=== PATIENT | female | born 1985 | race Caucasian/White ===

== ENCOUNTER → 2016-11-01 | Outpatient (CLI) | payer OTHER ==
[~2016-11-01] MED LIST: ATEN-173 PO; DOCO1CAP6 PO; LEVO25TA5 PO; PRENTAB26 PO; SERT50TA PO; VALA500T60 PO
--- NOTE | 2016-11-01 12:25 | MAMMOGRAPHY REPORT ---
BILATERAL DIGITAL DIAGNOSTIC MAMMOGRAM TOMOSYNTHESIS WITH CAD: 11/01/2016 CLINICAL HISTORY: Baseline examination. Family history of breast cancer = grandmothers and aunts. TECHNIQUE: Bilateral breast tomosynthesis in addition to standard 2D mammography was performed. Curr ent study was also evaluated with a Computer Aided Detection (CAD) system. COMPARISON: No prior exams were available for comparison. BREAST COMPOSITION: The tissue of both breasts is almost entirely fatty. FINDINGS: No suspicious mass, architectural distortion or cluster of microcalcifications is seen. IMPRESSION: ACR BI-RADS CATEGORY 1: NEGATIVE 1. There is no mammographic evidence of malignancy in the breasts. 2. There are no definitive guidelines as to screening recommendations under the age of 40 without a first degree relative or BRCA positivity. However, with multiple relatives, both maternal and syed rnal, having had breast cancer the patient likely has increased risk. Consider utilizing a breast c ancer risk assessment model such as the Vanesa risk model or JACKOSN II for determining appropriate scree evangelist intervals from here forward. If the patient's lifetime risk of developing breast cancer is at least 20%, she may also qualify for screening breast MRI. These results and recommendations were discussed with the patient at the time of the exam. Approximately 10% of breast cancers are not detected with mammography. A negative mammographic repor t should not delay biopsy if a clinically suggestive mass is present. Aurelia Enriquez M.D. ay/:11/01/2016 11:44:07 Computational Sciences Professor: Emilee CASAREZ)([place]), [facility] letter sent: Normal 1/2 BI-RADS Code: ACR BI-RADS Category 1: Negative
== END | disposition home or self-care (01) ==
LOC: C.MAMM 09:46
PROVIDERS: ATTEND Obstetrics & Gynecology
DX: Z80.3 Family history of malignant neoplasm of breast (principal)

== ENCOUNTER → 2017-04-10 | Outpatient (CLI) | payer OTHER | END | disposition home or self-care (01) | LOC: C.LAB1850 11:50 | PROVIDERS: ATTEND Obstetrics & Gynecology | DX: E22.1 Hyperprolactinemia (principal) ==

== ENCOUNTER 2023-02-03 07:27 | Inpatient (IN) ==
[2023-02-03] MEDS ORDERED: OXYTOCIN 30 UNITS/500 ML BAG IV PRN ×3 (08:18→14:59)
[2023-02-03] MEDS ORDERED: LIDOCAINE 1% LOCAL 20 ML VIAL INFIL PRN (08:18)
[2023-02-03] MEDS: LACTATED RINGER'S 1,000 ML IV PRN ×4 (08:30→20:59)
[2023-02-03 08:44] LABS: Hemoglobin 11.4 g/dl (12.0-16.0); Mean Corpuscular Hemoglobin 30.2 pg (25.0-34.0); Mean Corpuscular Hgb Conc 33.5 g/dL (32.0-36.0); Mean Corpuscular Volume 90.2 fL (80.0-100.0); Mean Platelet Volume 11.2 fL (9.4-12.4); Platelet Count 230 K/uL (130-400); RDW Standard Deviation 45.6 fL (36.4-46.3); Red Blood Count 3.77 M/uL (4.20-5.40); White Blood Count 10.36 K/ul (4.8-10.8)
--- NOTE | 2023-02-03 08:46 | History & Physical Report ---
Date of Service February 03, 2023 Assessment & Plan (1) Obesity affecting : (2) Chronic hypertension during , antepartum: (3) with 38 completed weeks gestation: Plan Patient presents for induction for chtn, well controlled. Marie for ripening, low dose pit with this. When bulb falls out, plan arom as indicated. epidural on demand. Fetus category one. Anticipate . Admission and Anticipated Discharge Date Admission Date: February 03, 2023 History of Present Illness Chief Complaint: iol, chtn Primary Care Provider: Yves Cabrera MD Patient is a with iup at 38 0/7 weeks who presents for induction of labor for chtn. Blood pressures have been controlled throughout on atenolol. Patient feels well. notes +fm. no lof/vb. Occasional contractions and Delivery Plans CHTN On Atenolol *Baby ASA daily start 12-28 wks, continue until delivery *wkly NST's @32wks and twice wkly @36 wks *Serial Growth US @ 24 (doppler only if abnml) *Baseline 24hr urine (additioinal PRN) 09/30 133.1 *weekly GABY's @ 32wk(if on meds) *Deliver [id number] - 6/2 AMA -Per cHTN protocol Prolactinoma Hx hypothyroid-no current meds TFT's q 4 weeks Obesity (BMI between 35-39 @ beginning of ) -Per cHTN protoco OB Labs: Hemoglobin 11.1 g/dl (12.0-16.0) L 11/25/22 Hematocrit 33.5 % (37.0-47.0) L 11/25/22 Rubella IgG Antibody Immune (Immune) 08/19/22 Rapid Plasma Reagin Nonreactive (Nonreactive) 08/19/22 Hepatitis B Surface Antigen. NON-REACTIVE (NON-REACTIVE) 08/19/22 Hepatitis C Antibody (EIA) NON-REACTIVE (NON-REACTIVE) 08/19/22 HIV (1&2) Ag and Ab Confirmation NON-REACTIVE (NON-REACTIVE) 08/19/22 Glucose 1 Hour 50 gm Load 139 mg/dl (70-130) H 11/25/22 Maternal Serum Alpha Fetoprotein 21.2 ng/mL 09/02/22 OB Optional Labs: Chlamydia trachomatis RNA Not Detected (NotDetected) 08/19/22 Neisseria gonorrhoeae RNA Not Detected (NotDetected) 08/19/22 Thyroid Stimulating Hormone (TSH)D 1.750 uIu/ml (0.300-4.500) 09/30/22 Alpha Fetoprotein Triple Screen SEE NOTE 09/02/22 Labs Reviewed: 06/18/22- RBC-4.65 HGB-13.8 HCT-42.4 Platelet-316 Type and screen-O Positive cfDNA low risk--smp msafp neg--smp gbs neg Allergies Allergy/AdvReac Type Severity Reaction Status Date / Time No Known Allergies Allergy Verified 02/02/23 14:58 Home Medications Medication Instructions Recorded Confirmed Type prenat.vits,olesya,het-avav-ynpom 1 tab PO DAILY 08/17/22 02/02/23 History aspirin 81 mg tablet 81 mg PO DAILY 01/25/23 02/02/23 History atenolol 25 mg tablet 25 mg PO DAILY 01/25/23 02/02/23 History sertraline 50 mg tablet (Zoloft) 50 mg PO DAILY 01/25/23 02/02/23 History valacyclovir 1 gram tablet 1,000 mg PO DAILY PRN Cold Sores 01/25/23 02/02/23 History (Valtrex) Patient History Medical History (Updated 02/03/23 @ 08:53 by Bisi Ocampo MD, FACOG) Depression History of chicken pox History of female infertility History of hyperprolactinemia History of nephrolithiasis History of PCOS History of pre-eclampsia Kidney stone Surgical History History of laparoscopic cholecystectomy History of orthopedic surgery History of wisdom tooth extraction Family History Mother Hypertension BRCA gene positive Father Hypertension Lupus Rheumatoid arthritis Family/Other No problems noted. Aunt Breast cancer maternal aunt, paternal aunt Grandmother (Maternal) Breast cancer maternal grandmother and maternal great grandmother Cancer Denies family history of Colorectal cancer Social History Smoking Status: Never smoker Cigarettes Per Day: < 1/2 ppd; Do You Dip or Chew Tobacco: No; Hx Alcohol Use: No Hx Substance Use: No Preferred Language: Albanian Communication Ability: Effective Instructional Leader Required: No Beliefs That Will Affect Care: None marital status: marital status details: Juvencio Nowak (37) [phone] Current Living Situation: Spouse Current Living Situation Comment: 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 Date GA wks Lbr Lgth wt Sex Type del Anes Place Del Prov ? 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 speculum placed. cx visualized. Marie placed through. Bulb filled with 30cc sterile water. Tolerated well. Results & Data Vital Signs (Past 12 Hours) Vital Signs Temp Pulse Resp BP 02/03/23 07:37 18 02/03/23 07:37 36.7 C 18 02/03/23 07:38 82 126/87 Coding Level of Care Code None Diagnoses Obesity affecting O99.210 Chronic hypertension during , antepartum O10.919 with 38 completed weeks gestation Z3A.38
--- NOTE | 2023-02-03 15:02 | Labor Progress Brief Note ---
Date of Service February 03, 2023 Subjective Noting some contractions. marie bulb out Assessment & Plan (1) with 38 completed weeks gestation: (2) Chronic hypertension during , antepartum: Plan continue current management--can start increasing pit by 2. fetus category one. arom when able. epidural upon request. Admission and Anticipated Discharge Date Admission Date: February 03, 2023 Physical Exam Physical Exam: cx--3+/50/-3 toco--q2-4min, pit at 7 efm--130s with mod variablity, accels to 160s, no decels Results & Data Vital Signs (Past 12 Hours) Vital Signs Temp Pulse Resp BP Pulse Ox O2 Del Method 02/03/23 08:13 36.7 C 18 Room Air 02/03/23 14:30 18 02/03/23 14:30 18 02/03/23 13:30 20 02/03/23 13:30 20 02/03/23 13:40 85 142/68 H 02/03/23 13:19 80 142/68 H 02/03/23 13:00 20 02/03/23 13:00 20 02/03/23 12:30 18 02/03/23 12:30 18 02/03/23 12:00 18 02/03/23 12:00 18 02/03/23 11:39 79 137/72 02/03/23 11:30 20 02/03/23 11:30 20 02/03/23 11:06 18 02/03/23 11:06 36.8 C 18 02/03/23 11:05 74 143/75 H 02/03/23 10:00 18 02/03/23 10:00 18 02/03/23 10:38 78 154/72 H 02/03/23 10:28 74 145/70 H 02/03/23 10:17 94 02/03/23 10:17 83 02/03/23 10:17 81 160/67 H 02/03/23 10:03 20 02/03/23 10:03 20 02/03/23 10:16 72 91 02/03/23 10:11 78 94 02/03/23 10:10 70 158/72 H 94 02/03/23 10:08 72 173/79 H 02/03/23 09:56 76 94 02/03/23 09:54 72 96 02/03/23 09:49 73 95 02/03/23 09:47 72 94 02/03/23 09:44 74 94 02/03/23 09:41 74 94 02/03/23 09:39 73 95 02/03/23 09:34 71 95 02/03/23 09:29 73 96 02/03/23 09:24 79 97 02/03/23 09:19 81 93 02/03/23 07:37 18 02/03/23 07:37 36.7 C 18 02/03/23 07:38 82 126/87 Coding Level of Care Code None Diagnoses with 38 completed weeks gestation Z3A.38 Chronic hypertension during , antepartum O10.919
[2023-02-03] MEDS ORDERED: ePHEDrine sulfate 50 MG/ML AMP ONE (16:59)
[2023-02-03] MEDS ORDERED: SODIUM CHLORIDE 0.9% PF INJ 10 ML VIAL ONE (17:00)
[2023-02-03] MEDS ORDERED: NALOXONE HCL 0.4 MG/1 ML VIAL/CARP IV PRN (17:00)
[2023-02-03] MEDS ORDERED: ONDANSETRON INJ 2 MG/ML 2 ML VIAL IV PRN (17:00)
[2023-02-03] MEDS ORDERED: fentaNYL citrate PF 100 MCG/2 ML VIAL ONE (17:00)
[2023-02-03] MEDS ORDERED: BUPIVACAINE 0.25% PF 30 ML VIAL EPI PRN (17:00)
[2023-02-03] MEDS ORDERED: LIDOCAINE 2%/EPINEPHRINE 1:200,000 20 ML PF ONE (17:00)
[2023-02-03] MEDS ORDERED: METOCLOPRAMIDE HCL 20 MG in SODIUM CHLORIDE 0.9% 50 ML IV PRN (17:00)
[2023-02-03] MEDS ORDERED: LIDOCAINE 2% MPF LOCAL 5 ML VIAL EPI PRN (17:00)
[2023-02-03] MEDS ORDERED: ePHEDrine sulfate 50 MG/ML AMP IV PRN (17:00)
[2023-02-03] MEDS ORDERED: SODIUM CHLORIDE 0.9% PF INJ 10 ML VIAL EPI STA (17:00)
[2023-02-03] MEDS ORDERED: ROPIVACAINE 0.5% PF 5 MG/ML 20 ML VIAL EPI PRN (17:00)
[2023-02-03] MEDS ORDERED: LIDOCAINE 2%/EPINEPHRINE 1:200,000 20 ML PF EPI STA (17:00)
[2023-02-03] MEDS ORDERED: SODIUM CHLORIDE 0.9% PF INJ 10 ML VIAL EPI PRN (17:00)
[2023-02-03] MEDS ORDERED: NALOXONE HCL 1 MG in SODIUM CHLORIDE 0.9% 1000ML 1,000 ML IV PRN (17:00)
[2023-02-03] MEDS ORDERED: diphenhydrAMINE 50 MG/ML VIAL IV PRN (17:00)
[2023-02-03] MEDS ORDERED: BUPIVACAINE 0.25% PF 30 ML VIAL EPI STA (17:00)
[2023-02-03] MEDS ORDERED: PROMETHAZINE HCL 25 MG in SODIUM CHLORIDE 0.9% 50 ML IV PRN (17:00)
[2023-02-03] MEDS ORDERED: fentaNYL 2MCG/ML ROPIVACAINE 1.25MG/ML 100 ML BAG EPI PRN (17:00)
[2023-02-03] MEDS ORDERED: NALBUPHINE HCL INJ 10 MG/ML AMP IV PRN (17:00)
[2023-02-03] MEDS ORDERED: fentaNYL 2MCG/ML ROPIVACAINE 1.25MG/ML 100 ML BAG EPI ONE (17:00)
[2023-02-03] MEDS ORDERED: fentaNYL citrate PF 100 MCG/2 ML VIAL EPI STA (17:00)
[2023-02-03] MEDS ORDERED: fentaNYL citrate PF 100 MCG/2 ML VIAL EPI PRN (17:00)
[2023-02-03] MEDS ORDERED: BUPIVACAINE 0.25% PF 30 ML VIAL ONE (17:00)
--- NOTE | 2023-02-03 17:03 | Anesthesiology Consultation ---
Date of Service February 03, 2023 Assessment & Plan Chart Review Chart Review: Acceptable Risk for Labor Epidural Consults Requested none ASA ASA2 Proposed Anesthesia Anesthesia Type: Labor Epidural Risk / Benefits Reviewed With: PT / POA / Parent / Guardian, Accepts Plan and Informed Consent Obtained History Height/Weight Height: 5 ft 11 in Weight: 119.748 kg Allergies Allergy/AdvReac Type Severity Reaction Status Date / Time No Known Allergies Allergy Verified 02/02/23 14:58 Medications Home Medications Medication Instructions Recorded Confirmed Last Taken prenat.vits,olesya,hht-fwer-muvjt 1 tab PO DAILY 08/17/22 02/03/23 02/02/23 22:00 aspirin 81 mg tablet 81 mg PO DAILY 01/25/23 02/03/23 02/02/23 22:00 atenolol 25 mg tablet 25 mg PO DAILY 01/25/23 02/03/23 02/02/23 22:00 sertraline 50 mg tablet (Zoloft) 50 mg PO DAILY 01/25/23 02/03/23 02/02/23 22:00 valacyclovir 1 gram tablet 1,000 mg PO DAILY PRN Cold Sores 01/25/23 02/03/23 Unknown (Valtrex) Active Medications Generic Name Dose Route Start Last Admin Trade Name Freq PRN Reason Stop Dose Admin Lactated Ringer's 1,000 mls @ 125 mls/hr 02/03/23 08:18 02/03/23 16:56 Lr IV 02/05/23 08:17 999 mls/hr .Q8H PRN Administration L&D Protocol Protocol Oxytocin 30 units in 500 mls @ 13 mls/hr 02/03/23 14:59 02/03/23 16:30 Pitocin IV 02/05/23 14:58 0.78 units/hr .Q24H PRN 13 mls/hr Labor Induction/Augmentation Titration Protocol 0.78 UNITS/HR NPO Date Last Intake of Fluids: 02/03/23 Time Last Intake of Fluids: 17:04 Date Last Intake of Solids: 02/03/23 Time Last Intake of Solids: 00:01 Past Medical History Medical History Depression History of chicken pox History of female infertility History of hyperprolactinemia History of nephrolithiasis History of PCOS History of pre-eclampsia Kidney stone Exercise / Class Metabolic Activity II 4-5 Yardwork/Stairs/Walk up hill Past Family History Family History Mother Hypertension BRCA gene positive Father Hypertension Lupus Rheumatoid arthritis Family/Other No problems noted. Aunt Breast cancer maternal aunt, paternal aunt Grandmother (Maternal) Breast cancer maternal grandmother and maternal great grandmother Cancer Denies family history of Colorectal cancer Past Surgical History Surgical History History of laparoscopic cholecystectomy History of orthopedic surgery open treatment of fracture of distal radius History of wisdom tooth extraction Past Anesthesia History No Hx of Anesthesia Complications and No Family Hx of Anesthesia Complications History of PONV No Hx of PONV and No Hx of Motion Sickness Social History Smoking Status: Former smoker Smoking cigarettes per day: < 1/2 ppd Do You Dip or Chew Tobacco: No Hx Alcohol Use: No Hx Substance Use: No Physical Exam Vital Signs Last Vital Signs Temp 36.8 C 02/03/23 15:15 Pulse 85 02/03/23 16:59 Resp 20 02/03/23 16:30 BP 147/67 H 02/03/23 16:39 Pulse Ox 100 02/03/23 16:59 O2 Del Method Room Air 02/03/23 08:13 Constitutional + obese ENMT Mouth: no TMJ abnormality Thyromental Distance: > or= 3.5 Finger Breadths Mallampati Class: II Neck normal visual inspection and trachea midline; neck extension not limited Respiratory normal respiratory effort Auscultation: lungs clear to auscultation bilaterally Cardiovascular Rate/Rhythm: regular rate and regular rhythm Heart Sounds: no murmur Musculoskeletal Spine: normal cervical ROM Extremities: full ROM of extremities Neurologic moves all extremities Psychiatric Orientation: alert and oriented x 3 Testing Laboratory Results 02/03/23 08:24
--- NOTE | 2023-02-03 18:26 | Labor Progress Brief Note ---
Date of Service February 03, 2023 Subjective comfortable with epidural. Assessment & Plan (1) with 38 completed weeks gestation: (2) Chronic hypertension during , antepartum: Plan continue current management. fetus category one. anticipate . Pressures stable. Admission and Anticipated Discharge Date Admission Date: February 03, 2023 Physical Exam Physical Exam: cx--4/75/-2, arom clear toco--q2-4, pit at 15 efm--120s with mod bharti, accels to 150s, no decels Results & Data Vital Signs (Past 12 Hours) Vital Signs Temp Pulse Resp BP Pulse Ox O2 Del Method 02/03/23 08:13 36.7 C 18 Room Air 02/03/23 18:23 90 100 02/03/23 18:20 88 93 02/03/23 18:17 88 100 02/03/23 18:12 84 100 02/03/23 18:07 83 100 02/03/23 18:00 16 02/03/23 18:00 36.8 C 16 02/03/23 18:02 95 H 100 02/03/23 17:59 97 H 136/62 02/03/23 17:57 88 100 02/03/23 17:55 91 H 145/65 H 02/03/23 17:52 89 100 02/03/23 17:49 83 135/68 02/03/23 17:47 96 H 100 02/03/23 17:43 93 H 139/67 02/03/23 17:42 88 100 02/03/23 17:41 91 H 127/62 02/03/23 17:38 78 151/70 H 02/03/23 17:37 96 H 100 02/03/23 17:36 86 148/67 H 02/03/23 17:34 96 H 137/81 02/03/23 17:32 86 02/03/23 17:32 99 H 141/74 H 100 02/03/23 17:30 84 137/79 02/03/23 17:29 100 H 134/91 02/03/23 17:27 85 100 02/03/23 17:22 90 100 02/03/23 17:17 96 H 100 02/03/23 17:09 95 H 100 02/03/23 17:04 95 H 100 02/03/23 16:59 85 100 02/03/23 16:30 20 02/03/23 16:30 20 02/03/23 16:39 90 147/67 H 02/03/23 16:00 20 02/03/23 16:00 20 02/03/23 15:38 87 146/77 H 02/03/23 15:30 20 02/03/23 15:30 20 02/03/23 15:00 18 02/03/23 15:00 18 02/03/23 15:15 18 02/03/23 15:15 36.8 C 18 02/03/23 15:04 80 148/85 H 02/03/23 14:30 18 02/03/23 14:30 18 02/03/23 13:30 20 02/03/23 13:30 20 02/03/23 13:40 85 142/68 H 02/03/23 13:19 80 142/68 H 02/03/23 13:00 20 02/03/23 13:00 20 02/03/23 12:30 18 02/03/23 12:30 18 02/03/23 12:00 18 02/03/23 12:00 18 02/03/23 11:39 79 137/72 02/03/23 11:30 20 02/03/23 11:30 20 02/03/23 11:06 18 02/03/23 11:06 36.8 C 18 02/03/23 11:05 74 143/75 H 02/03/23 10:00 18 02/03/23 10:00 18 02/03/23 10:38 78 154/72 H 02/03/23 10:28 74 145/70 H 02/03/23 10:17 94 02/03/23 10:17 83 02/03/23 10:17 81 160/67 H 02/03/23 10:03 20 02/03/23 10:03 20 02/03/23 10:16 72 91 02/03/23 10:11 78 94 02/03/23 10:10 70 158/72 H 94 02/03/23 10:08 72 173/79 H 02/03/23 09:56 76 94 02/03/23 09:54 72 96 02/03/23 09:49 73 95 02/03/23 09:47 72 94 02/03/23 09:44 74 94 02/03/23 09:41 74 94 02/03/23 09:39 73 95 02/03/23 09:34 71 95 02/03/23 09:29 73 96 02/03/23 09:24 79 97 02/03/23 09:19 81 93 02/03/23 07:37 18 02/03/23 07:37 36.7 C 18 02/03/23 07:38 82 126/87 Coding Level of Care Code None Diagnoses with 38 completed weeks gestation Z3A.38 Chronic hypertension during , antepartum O10.919
--- NOTE | 2023-02-03 21:15 | Labor Progress Brief Note ---
Date of Service February 03, 2023 Subjective comfortable Assessment & Plan (1) with 38 completed weeks gestation: (2) Chronic hypertension during , antepartum: Plan iupc placed. max pit to 30. fetus category one. Admission and Anticipated Discharge Date Admission Date: February 03, 2023 Physical Exam Physical Exam: cx--4/75/-2 copious clear fluid toco--irregular contractions 2-5, pit at 19 efm--130s wtih mod variability, accels to 160s, no decels iupc placed Results & Data Vital Signs (Past 12 Hours) Vital Signs Temp Pulse Resp BP Pulse Ox 02/03/23 21:08 88 100 02/03/23 21:05 77 151/72 H 02/03/23 21:03 79 92 02/03/23 20:58 84 100 02/03/23 20:53 82 99 02/03/23 20:50 81 91 02/03/23 20:48 88 100 02/03/23 20:43 81 99 02/03/23 20:39 86 92 02/03/23 20:38 84 100 02/03/23 20:33 84 100 02/03/23 20:28 85 100 02/03/23 20:26 92 H 90 02/03/23 20:23 82 100 02/03/23 20:18 86 100 02/03/23 20:13 88 L 02/03/23 20:13 88 02/03/23 20:13 91 H 97 02/03/23 20:08 88 94 02/03/23 20:04 84 141/67 H 02/03/23 20:03 78 100 02/03/23 20:00 88 92 02/03/23 19:58 82 100 02/03/23 19:53 102 H 93 02/03/23 19:52 85 94 02/03/23 19:48 84 100 02/03/23 19:43 77 100 02/03/23 19:38 83 95 02/03/23 19:33 79 96 02/03/23 19:30 81 91 02/03/23 19:28 79 97 02/03/23 19:23 81 100 02/03/23 19:18 79 100 02/03/23 19:13 83 100 02/03/23 19:08 36.5 C 80 18 100 02/03/23 19:03 79 100 02/03/23 18:58 77 100 02/03/23 18:53 83 100 02/03/23 18:50 87 91 02/03/23 18:48 84 02/03/23 18:48 84 123/60 100 02/03/23 18:43 86 100 02/03/23 18:30 18 02/03/23 18:30 18 02/03/23 18:38 83 100 02/03/23 18:33 81 02/03/23 18:33 80 134/62 100 02/03/23 18:28 83 100 02/03/23 18:26 78 133/66 02/03/23 18:23 90 100 02/03/23 18:20 88 93 02/03/23 18:17 88 100 02/03/23 18:12 84 100 02/03/23 18:07 83 100 02/03/23 18:00 16 02/03/23 18:00 36.8 C 16 02/03/23 18:02 95 H 100 02/03/23 17:59 97 H 136/62 02/03/23 17:57 88 100 02/03/23 17:55 91 H 145/65 H 02/03/23 17:52 89 100 02/03/23 17:49 83 135/68 02/03/23 17:47 96 H 100 02/03/23 17:43 93 H 139/67 02/03/23 17:42 88 100 02/03/23 17:41 91 H 127/62 02/03/23 17:38 78 151/70 H 02/03/23 17:37 96 H 100 02/03/23 17:36 86 148/67 H 02/03/23 17:34 96 H 137/81 02/03/23 17:32 86 02/03/23 17:32 99 H 141/74 H 100 02/03/23 17:30 84 137/79 02/03/23 17:29 100 H 134/91 02/03/23 17:27 85 100 02/03/23 17:22 90 100 02/03/23 17:17 96 H 100 02/03/23 17:09 95 H 100 02/03/23 17:04 95 H 100 02/03/23 16:59 85 100 02/03/23 16:30 20 02/03/23 16:30 20 02/03/23 16:39 90 147/67 H 02/03/23 16:00 20 02/03/23 16:00 20 02/03/23 15:38 87 146/77 H 02/03/23 15:30 20 02/03/23 15:30 20 02/03/23 15:00 18 02/03/23 15:00 18 02/03/23 15:15 18 02/03/23 15:15 36.8 C 18 02/03/23 15:04 80 148/85 H 02/03/23 14:30 18 02/03/23 14:30 18 02/03/23 13:30 20 02/03/23 13:30 20 02/03/23 13:40 85 142/68 H 02/03/23 13:19 80 142/68 H 02/03/23 13:00 20 02/03/23 13:00 20 02/03/23 12:30 18 02/03/23 12:30 18 02/03/23 12:00 18 02/03/23 12:00 18 02/03/23 11:39 79 137/72 02/03/23 11:30 20 02/03/23 11:30 20 02/03/23 11:06 18 02/03/23 11:06 36.8 C 18 02/03/23 11:05 74 143/75 H 02/03/23 10:00 18 02/03/23 10:00 18 02/03/23 10:38 78 154/72 H 02/03/23 10:28 74 145/70 H 02/03/23 10:17 94 02/03/23 10:17 83 02/03/23 10:17 81 160/67 H 02/03/23 10:03 20 02/03/23 10:03 20 02/03/23 10:16 72 91 02/03/23 10:11 78 94 02/03/23 10:10 70 158/72 H 94 02/03/23 10:08 72 173/79 H 02/03/23 09:56 76 94 02/03/23 09:54 72 96 02/03/23 09:49 73 95 02/03/23 09:47 72 94 02/03/23 09:44 74 94 06/02/23 09:41 74 94 02/03/23 09:39 73 95 02/03/23 09:34 71 95 02/03/23 09:29 73 96 02/03/23 09:24 79 97 02/03/23 09:19 81 93 Coding Level of Care Code None Diagnoses with 38 completed weeks gestation Z3A.38 Chronic hypertension during , antepartum O10.919
--- NOTE | 2023-02-04 00:06 | Labor Progress Brief Note ---
Date of Service February 04, 2023 Subjective feeling some contractions, still leaking copious clear fluid Assessment & Plan (1) with 38 completed weeks gestation: (2) Chronic hypertension during , antepartum: Plan Starting to make some slow progress, hopefully will start to dilate now that she is effacing. fetus overall reassuring. Admission and Anticipated Discharge Date Admission Date: February 03, 2023 Physical Exam Physical Exam: cx--5/90/-2 toco--q3-4min, MVUs >200 efm--130s wtih mod variability, accels present, early/variables with contractions Results & Data Vital Signs (Past 12 Hours) Vital Signs Temp Pulse Resp BP Pulse Ox 02/04/23 00:03 92 02/04/23 00:03 83 02/04/23 00:03 82 100 02/03/23 23:58 84 100 02/03/23 23:53 83 100 02/03/23 23:48 79 100 02/03/23 23:43 84 100 02/03/23 23:38 86 100 02/03/23 23:33 86 100 02/03/23 23:28 87 100 02/03/23 23:23 84 100 02/03/23 23:18 86 100 02/03/23 23:13 85 100 02/03/23 23:10 88 92 02/03/23 23:00 20 02/03/23 23:00 36.7 C 20 02/03/23 23:08 84 100 02/03/23 23:04 87 125/61 02/03/23 23:03 86 100 02/03/23 22:57 86 94 02/03/23 22:58 87 97 02/03/23 22:53 86 95 02/03/23 22:51 87 93 02/03/23 22:48 88 100 02/03/23 22:43 84 97 02/03/23 22:38 86 99 02/03/23 22:36 84 91 02/03/23 22:33 83 88 L 02/03/23 22:30 86 93 02/03/23 22:28 87 99 02/03/23 22:23 79 100 02/03/23 22:18 84 100 02/03/23 22:13 93 H 100 02/03/23 22:08 88 100 02/03/23 22:04 82 140/68 02/03/23 22:03 94 02/03/23 22:03 86 02/03/23 22:03 84 96 02/03/23 21:58 81 97 02/03/23 21:53 94 02/03/23 21:53 83 02/03/23 21:53 82 96 02/03/23 21:48 79 91 02/03/23 21:43 83 100 02/03/23 21:01 18 02/03/23 21:01 36.8 C 18 02/03/23 21:38 83 100 02/03/23 21:33 85 98 02/03/23 21:30 81 87 L 02/03/23 21:28 84 100 02/03/23 21:23 82 92 02/03/23 21:22 86 90 02/03/23 21:18 86 100 02/03/23 21:13 83 89 L 02/03/23 21:08 88 100 02/03/23 21:05 77 151/72 H 02/03/23 21:03 79 92 02/03/23 20:58 84 100 02/03/23 20:53 82 99 02/03/23 20:50 81 91 02/03/23 20:48 88 100 02/03/23 20:43 81 99 02/03/23 20:39 86 92 02/03/23 20:38 84 100 02/03/23 20:33 84 100 02/03/23 20:28 85 100 02/03/23 20:26 92 H 90 02/03/23 20:23 82 100 02/03/23 20:18 86 100 02/03/23 20:13 88 L 02/03/23 20:13 88 02/03/23 20:13 91 H 97 02/03/23 20:08 88 94 02/03/23 20:04 84 141/67 H 02/03/23 20:03 78 100 02/03/23 20:00 88 92 02/03/23 19:58 82 100 02/03/23 19:53 102 H 93 02/03/23 19:52 85 94 02/03/23 19:48 84 100 02/03/23 19:43 77 100 02/03/23 19:38 83 95 02/03/23 19:33 79 96 02/03/23 19:30 81 91 02/03/23 19:28 79 97 02/03/23 19:23 81 100 02/03/23 19:18 79 100 02/03/23 19:13 83 100 02/03/23 19:08 36.5 C 80 18 100 02/03/23 19:03 79 100 02/03/23 18:58 77 100 02/03/23 18:53 83 100 02/03/23 18:50 87 91 02/03/23 18:48 84 02/03/23 18:48 84 123/60 100 02/03/23 18:43 86 100 02/03/23 18:30 18 02/03/23 18:30 18 02/03/23 18:38 83 100 02/03/23 18:33 81 02/03/23 18:33 80 134/62 100 02/03/23 18:28 83 100 02/03/23 18:26 78 133/66 02/03/23 18:23 90 100 02/03/23 18:20 88 93 02/03/23 18:17 88 100 02/03/23 18:12 84 100 02/03/23 18:07 83 100 02/03/23 18:00 16 02/03/23 18:00 36.8 C 16 02/03/23 18:02 95 H 100 02/03/23 17:59 97 H 136/62 02/03/23 17:57 88 100 02/03/23 17:55 91 H 145/65 H 02/03/23 17:52 89 100 02/03/23 17:49 83 135/68 02/03/23 17:47 96 H 100 02/03/23 17:43 93 H 139/67 02/03/23 17:42 88 100 02/03/23 17:41 91 H 127/62 02/03/23 17:38 78 151/70 H 02/03/23 17:37 96 H 100 02/03/23 17:36 86 148/67 H 02/03/23 17:34 96 H 137/81 02/03/23 17:32 86 02/03/23 17:32 99 H 141/74 H 100 02/03/23 17:30 84 137/79 02/03/23 17:29 100 H 134/91 02/03/23 17:27 85 100 02/03/23 17:22 90 100 02/03/23 17:17 96 H 100 02/03/23 17:09 95 H 100 02/03/23 17:04 95 H 100 02/03/23 16:59 85 100 02/03/23 16:30 20 02/03/23 16:30 20 02/03/23 16:39 90 147/67 H 02/03/23 16:00 20 02/03/23 16:00 20 02/03/23 15:38 87 146/77 H 02/03/23 15:30 20 02/03/23 15:30 20 02/03/23 15:00 18 02/03/23 15:00 18 02/03/23 15:15 18 02/03/23 15:15 36.8 C 18 02/03/23 15:04 80 148/85 H 02/03/23 14:30 18 02/03/23 14:30 18 02/03/23 13:30 20 02/03/23 13:30 20 02/03/23 13:40 85 142/68 H 02/03/23 13:19 80 142/68 H 02/03/23 13:00 20 02/03/23 13:00 20 02/03/23 12:30 18 02/03/23 12:30 18 Coding Level of Care Code None Diagnoses with 38 completed weeks gestation Z3A.38 Chronic hypertension during , antepartum O10.919
[2023-02-04] MEDS ORDERED: NURSING L&D Epidural Breakthrough Pain Update ONE (00:17)
--- NOTE | 2023-02-04 01:26 | Anesthesia Procedure Note ---
Date of Service February 04, 2023 Anesthesia Epidural Re-Dose Vital Signs Temp Pulse Resp BP Pulse Ox O2 Del Method 36.9 C 88 22 153/97 H 93 Room Air 02/04/23 01:03 02/04/23 01:22 02/04/23 01:03 02/04/23 01:21 02/04/23 01:22 02/03/23 08:13 Notes Pain Intensity: 10 Dilatation (cm): 7.0 Effacement (%): 90 Called by nursing to evaluate epidural as the patient is having increased pain. The epidural was re-dosed with the following medications (all medications via epidural route) after negative aspiration of the epidural catheter for CSF/HEME. 0.25 Bupivacaine 8ml with Fentanyl 100 mcg via epidural After Epidural Re-Dose Mental Status: alert / awake / arousable and participated in evaluation Pain: improving with treatment Airway Patency, RR, SpO2: stable & adequate BP & HR: stable & adequate
[2023-02-04] MEDS ORDERED: oxyCODONE/ACETAMINOPHEN 5mg/325mg TAB PO PRN (02:06)
[2023-02-04] MEDS ORDERED: HYDROCORTISONE ACETATE 25 MG SUPP PR PRN (02:06)
[2023-02-04] MEDS ORDERED: ACETAMINOPHEN 325 MG TAB PO PRN (02:06)
[2023-02-04] MEDS ORDERED: BENZOCAINE 20% AER SPR 82.5 GM CAN EXT PRN (02:06)
[2023-02-04] MEDS ORDERED: bisacodyL 10 MG SUPP PR PRN (02:06)
[2023-02-04] MEDS ORDERED: OXYTOCIN 30 UNITS/500 ML BAG IV PRN (02:06)
[2023-02-04] MEDS ORDERED: DIPHTHERIA/TETANUS/PERTUSSIS Vaccine (Tdap, Age 7+yrs) 0.5mL SYR/VL IM ONE (02:06)
[2023-02-04] MEDS ORDERED: ATENOLOL 25 MG TABLET PO ONE (02:09)
--- NOTE | 2023-02-04 02:10 | Delivery Summary ---
Vaginal Delivery Summary Date of Service February 04, 2023 Vaginal Delivery Summary and 2nd Degree LAC Pre-operative Diagnosis: at 38 weeks chtn Post-operative Diagnosis: same Procedure: marie bulb for ripening pitocin induction epidural arom iupc second degree laceration and repair EBL: 400cc Anesthesia: epidural Procedure: Patient presented to labor and delivery for induction for well controlled chtn. Cervix unfavorable so marie bulb placed and low dose pitocin started. When bulb fell out, pitocin continued. The patient underwent an epidural and then arom for copious amounts of clear fluid. The patient made little progress and IUPC placed. Pitocin run until MVU's greater than 200. The patient then suddenly got painful and found to be 7cm. Epidural redosed and got minimal relief. Then found to be nine and cervix was reduced. The patient pushed for about 10min to deliver a viable male in [place] position. A loose nuchal cord was reduced. The rest of the infant was then delivered without difficulty. The nose and mouth were bulb suctioned and the was placed in the maternal abdomen for drying and attention. Cord was clamped and cut at one minute of life. Cord blood and segment obtained. Placenta delivere d spontaneous, intact with a three vessel cord. Cervix/sulci/rectum were intact. A second degree perineal laceration was repaired in the normal standard fashion. Hemostasis obtained with dilute pitocin and fundal massage. Apgars were 8/8. Mother and baby doing well at the end of the delivery. [facility] [place] Vaginal Delivery Charge Delivery Type Details: and 2nd Degree LAC
--- NOTE | 2023-02-04 02:11 | Anesthesia Procedure Note ---
Date of Service February 04, 2023 Anesthesia Post Epidural Note Vital Signs Vital Signs: Temp Pulse Resp BP Pulse Ox O2 Del Method 36.9 C 88 22 151/75 H 99 Room Air 02/04/23 01:03 02/04/23 02:06 02/04/23 01:03 02/04/23 02:06 02/04/23 01:39 02/03/23 08:13 Pain Intensity Abdomen: Pain Intensity: 4 Notes Mental Status: alert / awake / arousable and participated in evaluation Nausea / Vomiting: adequately controlled Pain: adequately controlled Airway Patency, RR, SpO2: stable & adequate BP & HR: stable & adequate Hydration State: stable & adequate Neuraxial Anesthesia: was administered and sensory block is resolving Anesthetic Complications: no major complications apparent and Pt Satisfied with anesthetic care Epidural: Removed without complications and With tip intact
[2023-02-04] MEDS: IBUPROFEN 600 MG TAB PO PRN ×3 (05:24→17:14)
[2023-02-04 06:46] LABS: Hematocrit (blood only) 32.3 % (37.0-47.0); Hemoglobin 10.9 g/dl (12.0-16.0)
[2023-02-04] MEDS: DOCUSATE SODIUM 100 MG CAP PO SCH ×2 (07:48→21:50)
[2023-02-04] MEDS: PRENATAL VITAMIN 1 TAB PO SCH (07:48)
[2023-02-04] MEDS ORDERED: ATENOLOL 25 MG TABLET PO SCH (21:00)
[2023-02-05] MEDS: PRENATAL VITAMIN 1 TAB PO SCH (08:39)
[2023-02-05] MEDS: DOCUSATE SODIUM 100 MG CAP PO SCH (08:39)
[2023-02-05] MEDS: IBUPROFEN 600 MG TAB PO PRN ×2 (08:39→15:39)
--- NOTE | 2023-02-05 09:09 | Obstetrical Progress Note ---
Date of Service February 05, 2023 Assessment & Plan (1) Encounter for care and examination after delivery: Day 1 status post vaginal delivery. Patient doing well. Blood pressures have been labile in the setting of chronic hypertension. Denying any preeclampsia symptoms. We will continue to monitor. (2) Chronic hypertension during , antepartum: Subjective Ambulation: ambulating normally Voiding: no voiding problems Passing Gas:: Yes Diet Tolerance:: regular diet Lochia:: Moderate Feeding Type:: breast feeding Physical Exam Constitutional WD/WN, vitals as above Respiratory normal respiratory effort; no respiratory distress and no labored breathing Gastrointestinal (Abdomen) Inspection/Auscultation: abdomen normal to inspection; abdomen not distended Percussion/Palpation: abdomen soft; abdomen nontender, no guarding and abdomen not rigid Genitourinary OB Exam Abdomen: + fundal height Fundus: + firm and + relation to umbilicus (Below); not tender or not boggy Results & Data Vital Signs (Past 12 Hours) Vital Signs Temp Pulse Resp BP Pulse Ox O2 Del Method 02/05/23 08:00 36.5 C 73 18 137/83 98 Room Air 02/05/23 04:12 36.6 C 61 18 157/97 H 02/04/23 23:44 36.8 C 73 18 132/84 97 Room Air
[2023-02-05] MEDS ORDERED: bisacodyL 5 MG TABEC PO SCH (20:00)
[2023-02-05] MEDS ORDERED: SERTRALINE HCL 50 MG TABLET PO SCH (21:00)
== END 2023-02-05 19:06 | disposition home or self-care (01) | DRG 807 ==
LOC: 4S1 07:27 → 4E2 02-04 04:27